=== PATIENT | female | born 1970 | race Caucasian/White ===

== ENCOUNTER 2021-07-21 22:02 | Emergency (ER) | payer OTHER ==
[~2021-07-21] VITALS: Ht 152.4 cm; Wt 102.1 kg
[~2021-07-21 22:02] MED LIST: ATACAND HCT 11 UDTA1; SYNTHROID175 MCG; ZOCOR5 MG
== END 2021-07-22 00:06 | disposition home or self-care (01) ==
LOC: ER 22:02
DX: N39.0 Urinary tract infection, site not specified (principal)